=== PATIENT | female | born 1980 | race Caucasian/White ===

== ENCOUNTER 2017-01-03 09:51 | Emergency (ER) | payer BC ==
[2017-01-03 10:07] VITALS: TEMP 97.5
--- NOTE | 2017-01-03 10:38 | ED.PDOC ---
History of Present Illness - General Chief Complaint: Abdominal Pain Stated Complaint: abdominal pain Time Seen by Provider: 01/03/17 09:56 Information Source: patient, RN notes reviewed, Vital Signs reviewed Exam Limitations: no limitations - History of Present Illness Initial Comments: Ms. Annalee Gaspar 36 y/o female with history of acute pancreatitis 1 1/2 yrs ago stated had onset of stabbing epigastric pain at about 0600h today stating same pain that she had when she had the pancreatitis;took zofran and hydrocodone but no relief.Ate a piece of cake with the medicine that she had taken.Also stated percogesic caused her acute pancreatitis last year. Abdominal Pain Onset Location: epigastric Pain Radiation: back Quality: steady, stabbing Timing/Duration: 4-6 hours Improving Factors: nothing Worsening Factors: nothing Associated Symptoms: nausea/vomiting Review of Systems - Review of Systems Constitutional: States: no symptoms reported EENTM: States: no symptoms reported Respiratory: States: no symptoms reported Cardiology: States: no symptoms reported Gastrointestinal/Abdominal: States: see HPI Genitourinary: States: no symptoms reported Musculoskeletal: States: no symptoms reported Skin: States: no symptoms reported Neurological: States: no symptoms reported Endocrine: States: no symptoms reported Hematologic/Lymphatic: States: no symptoms reported Past Medical History (General) - Patient Medical History Hx Seizures: No Hx Stroke: No Hx Asthma: No Hx of COPD: No Hx Cardiac Disorders: No Hx Congestive Heart Failure: No Hx Pacemaker: No Hx Hypertension: No Hx Diabetes: No Hx MRSA: Yes Hx Other PMH: Yes - pancreatitis Surgical History: cholecystectomy - Vaccination History Hx Tetanus, Diphtheria Vaccination: No Hx Influenza Vaccination: No - Social History Hx Tobacco Use: No Hx Alcohol Use: No Hx Substance Use: No Hx Physical Abuse: No Hx Emotional Abuse: No - Activities of Daily Living Patient Lives Alone: No - family Hospice Agency (if applicable):: None - Female History Patient is a Female of Child Bearing Age (10 -59 yrs old): Yes Hx Last Menstrual Period: 09/11/15 Patient : No Family Medical History - Family History Mother Family History: No Known Hx Family Cancer: Yes - breast-mom Physical Exam - Physical Exam General Appearance: Alert, No apparent distress Eyes, Ears, Nose, Throat Exam: PERRL/EOMI, normal ENT inspection, TMs normal, pharynx normal Neck: non-tender, full range of motion, supple, normal inspection Respiratory: chest non-tender, lungs clear, normal breath sounds Cardiovascular/Chest: normal peripheral pulses, regular rate, rhythm, no edema, no gallop, no JVD, no murmur Peripheral Pulses: No deficit Gastrointestinal/Abdominal: normal bowel sounds, soft, no organomegaly, no pulsatile mass, tenderness - epigastrium Extremity: normal range of motion, non-tender, normal inspection, no pedal edema , no calf tenderness Neurologic: no motor/sensory deficits, alert, normal mood/affect, oriented x 3 Skin Exam: normal color, warm/dry Lymphatic: no adenopathy Progress - Results/Orders Results/Orders: 01/03/17 11:52 Abdomen,Complete [US] Stat Laboratory Results WBC 7.6 K/mm3 (4.8-10.8) 01/03/17 10:18 RBC 4.34 M/mm3 (4.20-5.40) 01/03/17 10:18 Hgb 13.9 gm/dL (12.0-16.0) 01/03/17 10:18 Hct 40.9 % (36.0-47.0) 01/03/17 10:18 MCV 94.3 fl (81.0-99.0) 01/03/17 10:18 MCH 32.1 pg (27.0-31.0) H 01/03/17 10:18 MCHC 34.1 g/dL (33.0-37.0) 01/03/17 10:18 RDW 12.0 % (11.5-14.5) 01/03/17 10:18 Plt Count 247 K/mm3 (130-400) 01/03/17 10:18 MPV 8.8 fl (7.40-10.4) 01/03/17 10:18 Absolute Neuts (auto) 4.70 K/uL (1.8-6.8) 01/03/17 10:18 Absolute Lymphs (auto) 2.20 K/uL (1.0-3.4) 01/03/17 10:18 Absolute Monos (auto) 0.50 K/uL (0.2-0.8) 01/03/17 10:18 Absolute Eos (auto) 0.20 K/uL (0.0-0.4) 01/03/17 10:18 Absolute Basos (auto) 0.10 K/uL (0.0-0.1) 01/03/17 10:18 Neutrophils % 61.3 % (42.0-78.0) 01/03/17 10:18 Lymphocytes % 28.6 % (20.0-50.0) 01/03/17 10:18 Monocytes % 6.2 % (2.0-9.0) 01/03/17 10:18 Eosinophils % 3.1 % (1.0-5.0) 01/03/17 10:18 Basophils % 0.8 % (0.0-2.0) 01/03/17 10:18 Sodium 140 mmol/L (135-145) 01/03/17 10:18 Potassium 3.8 mmol/L (3.6-5.0) 01/03/17 10:18 Chloride 108 mmol/L (101-111) 01/03/17 10:18 Carbon Dioxide 25 mmol/L (21-31) 01/03/17 10:18 Anion Gap 10.8 (12-18) L 01/03/17 10:18 BUN 12 mg/dL (7-18) 01/03/17 10:18 Creatinine 0.72 mg/dL (0.6-1.3) 01/03/17 10:18 BUN/Creatinine Ratio 16.7 (10-20) 01/03/17 10:18 Random Glucose 116 mg/dL (70-105) H 01/03/17 10:18 Serum Osmolality 280.1 mOsm/L (275-295) 01/03/17 10:18 Calcium 8.8 mg/dL (8.4-10.2) 01/03/17 10:18 Total Bilirubin 1.8 mg/dL (0.2-1.0) H 01/03/17 10:18 AST 33 IU/L (10-42) 01/03/17 10:18 ALT 19 IU/L (10-60) 01/03/17 10:18 Alkaline Phosphatase 39 IU/L (42-121) L 01/03/17 10:18 Serum Total Protein 7.0 gm/dL (6.4-8.2) 01/03/17 10:18 Albumin 4.0 g/dl (3.2-5.5) 01/03/17 10:18 Globulin 3.0 gm/dL (2.3-3.5) 01/03/17 10:18 Albumin/Globulin Ratio 1.3 (1.1-1.9) 01/03/17 10:18 Amylase 71 U/L (28-100) 01/03/17 10:18 Lipase 63 U/L (22-51) H 01/03/17 10:18 Serum HCG, Qual Negative 01/03/17 10:18 Urine Color Yellow (Yellow) 01/03/17 10:30 Urine Appearance Clear (Clear) 01/03/17 10:30 Urine pH 6.0 (4.5-7.8) 01/03/17 10:30 Ur Specific [place] 1.025 (1.005-1.030) 01/03/17 10:30 Urine Protein Negative mg/dL 01/03/17 10:30 Urine Glucose (UA) Negative mg/dL (Negative) 01/03/17 10:30 Urine Ketones Negative mg/dL (NEGATIVE) 01/03/17 10:30 Urine Blood Negative (Negative) 01/03/17 10:30 Urine Nitrite Negative 01/03/17 10:30 Urine Bilirubin Negative (NEGATIVE) 01/03/17 10:30 Urine Urobilinogen 0.2 mg/dL (0.2-1.0) 01/03/17 10:30 Ur Leukocyte Esterase Negative (Negative) 01/03/17 10:30 Urine RBC 0 /hpf 01/03/17 10:30 Urine WBC 1-3 /hpf 01/03/17 10:30 Ur Epithelial Cells 5-10 /hpf 01/03/17 10:30 Urine Bacteria 1+ 01/03/17 10:30 - EKG/XRAY/CT XRAY: abdominal sono-head /body of pancreas unremarkable tail not fully visualize - no abnormalities noted read by radiologist Departure - Departure Clinical Impression: History of pancreatitis Abdominal pain Qualifiers: Abdominal location: epigastric Qualified Code(s): R10.13 - Epigastric pain Time of Disposition: 13:10 Disposition: Discharge to Home or Self Care Condition: Good Departure Forms: ED Discharge - Pt. Copy, Patient Portal Self Enrollment Instructions: DI for Abdominal Pain-Adult, Pancreatitis (Alternative Therapy), DI for Pancreatitis Diet: bland diet, other - AVOID GREASY AND SPICY FOODS Referrals: Luis Alberto Girard MD [Primary Care Provider] - 1-2 Weeks Prescriptions: Acetamin W/Cod #3 Tab [Tylenol w/CODEINE #3] 1 ea PO Q6HRS PRN #10 tab PRN Reason: Pain Promethazine Tab [Phenergan Tablet] 50 mg PO TIDHS PRN #20 tab PRN Reason: Nausea raNITIdine HCL [Zantac] 150 mg PO BID #60 tab Home Medications: Ambulatory Orders Acetamin W/Cod #3 Tab [Tylenol w/CODEINE #3] 1 ea PO Q6HRS PRN #10 tab 01/03/17 Promethazine Tab [Phenergan Tablet] 50 mg PO TIDHS PRN #20 tab 01/03/17 raNITIdine HCL [Zantac] 150 mg PO BID #60 tab 01/03/17 Additional Instructions: RETURN TO EMERGENCY ROOM NEEDED;FOLLOW UP WITH PRIMARY MD NEEDED TOMORROW AM CALL FOR APPOINTMENT
[2017-01-03] MEDS ORDERED: ONDANSETRON INJ 4 MG/2 ML VIAL IV ONE (10:41)
[2017-01-03] MEDS ORDERED: MORPHINE SULFATE INJ 10 MG/ML VIAL IV ONE (10:41)
[2017-01-03] MEDS ORDERED: SODIUM CHLORIDE 0.9% 1000ML 1,000 ML IVS ONE (10:41)
[2017-01-03] MEDS ORDERED: PANTOPRAZOLE SODIUM IV 40 MG VIAL IV ONE (10:52)
--- NOTE | 2017-01-03 11:11 | RAD ---
EXAM DESCRIPTION: Chest,1 View CLINICAL HISTORY: pain COMPARISON: None available FINDINGS: The cardiomediastinal silhouette is unremarkable. There is no airspace consolidation or pleural effusion. The bronchovascular markings are within normal limits, and the lungs are not hyperinflated. There is no pneumothorax or acute fracture. IMPRESSION: Negative exam. Electronically signed by: Jay Carrillo MD 01/03/2017 11:10 AM CDT
--- NOTE | 2017-01-03 12:57 | US ---
Study: Abdominal ultrasound. Indication: pain pancreatitis and nausea Comparison: None Technique: Multiplanar, multi sequence sonogram of the abdomen obtained. Findings: The liver is normal in echogenicity without discrete mass. Gallbladder surgically absent. No intrahepatic biliary ductal dilatation. The common bile duct measures 11.3 mm in diameter. The bilateral kidneys are appropriate in echogenicity without hydronephrosis or nephrolithiasis. The visualized portions of the aorta and inferior vena cava are normal. The pancreatic head and body unremarkable, however tail difficult to visualize. The spleen is normal. Impression: Dilated common bile duct up to 11.3 mm, and could relate to the postcholecystectomy state but is nonspecific. Distal obstructing stone or mass not excluded. Pancreatic head and body are unremarkable, however tail not well visualized. CT could better evaluate the pancreas as clinically indicated. Electronically signed by: Gumaro Cesar MD 01/03/2017 12:56 PM CDT
[2017-01-03] MEDS ORDERED: PROCHLORPERAZINE INJ 10 MG/2 ML VIAL IV ONE (13:00)
[2017-01-03 13:42] VITALS: BP 103/65; O2SAT 95
== END 2017-01-03 13:40 | disposition home or self-care (01) ==
LOC: ER 09:51
DX: R10.13 Epigastric pain (principal); Z87.19 Personal history of other diseases of the digestive system; Z86.14 Personal history of Methicillin resistant Staphylococcus aureus infection
CPT/HCPCS: 36415; 71010; 76700; 80053; 81001; 82150; 83690; 84703; 85025; J0780; J2270; J2405; J7030

== ENCOUNTER → 2017-01-05 | Outpatient (CLI) | payer BC | END | disposition home or self-care (01) | LOC: GMAM 13:06 | PROVIDERS: ATTEND Family Medicine | DX: N39.0 Urinary tract infection, site not specified (principal) ==

== ENCOUNTER → 2017-01-05 | Outpatient (CLI) | payer BC | END | disposition home or self-care (01) | LOC: GMAM 12:26 | PROVIDERS: ATTEND Family Medicine | DX: R10.13 Epigastric pain (principal) ==

== ENCOUNTER → 2017-03-22 | Outpatient (CLI) | payer BC, SELFPAY ==
--- NOTE | 2017-03-22 13:17 | CT ---
EXAM DESCRIPTION: Abdomen/Pelvis w/Contrast CLINICAL HISTORY: Abnormal LFTs COMPARISON: ultrasound January 03, 2017. TECHNIQUE: Postcontrast transaxial CT images of the abdomen and pelvis are obtained. No positive oral contrast was utilized. This exam was performed according to our departmental dose-optimization program, which includes automated exposure control, adjustment of the mA and/or kV according to patient size and/or use of iterative reconstruction technique . FINDINGS: Visualized lung bases show bilateral breast implants. No acute findings are seen. The liver, spleen, pancreas, and adrenal glands are unremarkable. Surgical clips from cholecystectomy are seen. No intra or extrahepatic biliary ductal dilatation is seen. Abdominal vasculature is unremarkable. Small fat-containing umbilical hernia seen. Kidneys are unremarkable. The urinary bladder is contracted and not well evaluated. The cervical portion of the uterus appears prominent and ill-defined with an 8 mm fluid attenuation probable nabothian cyst. The ovaries are not well identified. There is circumferential bowel wall thickening involving a portion of the terminal ileum without significant surrounding fat stranding. The appendix is not definitely identified. There are radiopaque areas of surgical clips or suture line near the cecum that could indicate prior appendectomy. Stomach and small bowel are unremarkable. Mildly increased volume of formed fecal material seen in the colon. No significant diverticular disease. No pathologically enlarged abdominal or retroperitoneal lymphadenopathy is seen. Osseous structures show no aggressive bony lesions. IMPRESSION: Mild circumferential bowel wall thickening without obvious inflammation is seen in the region of the terminal ileum. This is nonspecific. The patient has chronic right lower quadrant pain consider possible Crohn's disease. Further evaluation with small bowel follow-through may be useful if clinically indicated. Probable postsurgical changes from appendectomy. Cholecystectomy changes are seen without CT evidence of biliary tract obstruction. Enlarged indistinct appearance to the cervical portion of the uterus is noted. This area is not well evaluated on CT imaging. Recommend correlation with physical exam findings to exclude mass. Consider ultrasound of the pelvis if clinically indicated for better evaluation. There is evidence of a nabothian cysts. Electronically signed by: Talat Lr MD 03/22/2017 1:15 PM CDT
== END ==
LOC: CT 08:18
PROVIDERS: ATTEND Family Medicine
DX: R94.5 Abnormal results of liver function studies (principal)

== ENCOUNTER → 2018-11-06 | Outpatient (CLI) | payer OTHER, SELFPAY ==
--- NOTE | 2018-11-12 09:07 | MAM ---
EXAM DESCRIPTION: 3D Screening BILATERAL : Digital Mammography. CLINICAL HISTORY: 38 years Female SCREEN . No complaints or personal history of breast cancer. Mother with breast cancer. Childbirth. Premenopausal. No HRT. Lifetime risk of developing breast cancer (Tyrer-Cuzick model)(%): 10.2. COMPARISON: Baseline study at this facility.. No prior reports available. TECHNIQUE: Bilateral CC and MLO projection full-field images, with Liliam Implant Displacement digital tomosynthesis mammographic technique. Bilateral 2-D digital full-field images, MLO and CC projections, non-displaced. CAD Bilateral digital 2-D full-field MLO images. CAD not available for tomosynthesis or 2-D images. FINDINGS: The breast parenchymal density pattern is: Heterogeneously dense breast tissue, which may obscure small masses. No skin thickening or nipple retraction. Most of the dense tissue in the right breast is in the upper outer quadrant. Not associated with calcifications. Focal asymmetry in the anterior left breast at the 1:00 position, 2 cm from the nipple in the implant displaced images. This tissue is denser than the surrounding fibrocystic tissue. Bilateral retromuscular saline implants. Capsules appear intact where seen.. IMPRESSION: BI-RADS CATEGORY: 0 - INCOMPLETE- Need additional imaging evaluation. FOLLOW-UP: Recall for additional imaging: Bilateral targeted breast ultrasound in the regions of interest as described in the report. Diagnostic digital full-field and tomosynthesis imaging if indicated. By ultrasound findings. Written communication concerning the IMPRESSION and Follow-up, will be mailed to the patient and referring health care provider. Electronically signed by: Bijan Morin MD 11/12/2018 9:04 AM CDT
== END ==
LOC: MAMMO 15:52
DX: Z12.31 Encounter for screening mammogram for malignant neoplasm of breast (principal)

== ENCOUNTER → 2018-11-25 | Outpatient (CLI) | payer OTHER ==
--- NOTE | 2018-11-26 11:36 | US ---
EXAM DESCRIPTION: Breast,Bilateral: Ultrasound CLINICAL HISTORY: 38 yearsFemaleABN MAMMO. Bilateral breast implants. Revision surgery this week. Focal asymmetry anterior left breast and asymmetric dense tissue right lateral. COMPARISON: Bilateral screening digital breast tomosynthesis 11/06/2018. TECHNIQUE: Transcutaneous scanning of the bilateral breasts utilizing gupta-scale and Doppler modes. Scanning performed by the outside contractor sales and Dr. Morin. FINDINGS: Scanning 9:00-12:00 position right breast. Mostly fibroglandular tissues. Well-defined oval anechoic structure abutting the implant measuring 6.2 x 5.4 x 3.0 mm. Circumscribed salazar, wider than tall orientation, and posterior acoustic enhancement. Typical implant capsule appearance. No dominant solid mass, large calcifications, abnormal vascularity, or overlying skin changes Scanning left breast 12:00 to 2:00. Implant capsule intact where seen. Mostly fibroglandular tissues. No dominant solid mass or distinct cyst. No large calcification or parenchymal edema. No overlying skin changes or abnormal vascularity. IMPRESSION: Benign exam. BIRAD CATEGORY: 2 BENIGN FINDINGS. RECOMMENDATIONS: FOLLOW UP: Routine digital bilateral mammographic screening, one year interval from November 2018. The FINDINGS and the FOLLOW-UP plan were reviewed in person with the patient after the examination. Written communication explaining the IMPRESSION and FOLLOW-UP will be mailed to the patient and referring care provider. According to the [employer], yearly mammograms are recommended starting at age 40 and continuing as long as a woman is in good health. Any breast change noted on a breast self-exam should be reported promptly to the patient's healthcare provider. Breast MRI is recommended for women with an approximately 20-25% or greater lifetime risk of breast cancer, including women with a strong family history of breast or ovarian cancer and women who have been treated for Hodgkin's disease. A negative mammographic report should not delay tissue diagnosis in patients with significant clinical history or physical findings. Extremely dense breast tissue limits the sensitivity of digital mammography. Electronically signed by: Bijan Morin MD 11/26/2018 11:33 AM CDT
== END ==
LOC: US 09:48
PROVIDERS: ATTEND Family Medicine
DX: R92.8 Other abnormal and inconclusive findings on diagnostic imaging of breast (principal)